=== PATIENT | male | born 1975 | race Caucasian/White ===

== ENCOUNTER 2020-09-16 16:13 | Emergency (ER) | payer OTHER, SELFPAY ==
[2020-09-16 16:26] VITALS: BP 139/105; PULSE 107; RESP 14; TEMP 37.1; O2SAT 98
--- NOTE | 2020-09-16 16:30 | DI.RAD_ITS ---
Exam(s) XR ANKLE LT COMPLETE EXAM: XR ANKLE LT COMPLETE CLINICAL HISTORY: pain at medial malleolus TECHNIQUE: 2D digital imaging was performed. COMPARISON: No exams were available for comparison FINDINGS: BONES: No acute fracture is present. No bony destructive lesion is seen. JOINTS:The ankle mortise is normally aligned. SOFT TISSUE: Normal. IMPRESSION: Unremarkable radiographs of the left ankle. If there is continued clinical concern, a follow-up exami nation may be obtained in 10-14 days. DATA REPOSITORY: RADIATION DOSE DELIVERED:
--- NOTE | 2020-09-16 16:40 | ED.GENADUL_ITS ---
Discharge Plan Disposition Patient Disposition: HOME Condition: Good Discharge Details Clinical Impression: Ankle sprain Primary Care Provider: Sia,Local ED Provider: Marcie Crystal Discharge Instructions Instructions: Ankle Sprain (ED) Additional Instructions: Take ibuprofen 600 mg every 8 hours with food Follow-up with your primary care physician in 1 week for repeat x-ray with persistent pain You may take Tylenol for breakthrough pain Refrain from wrapping the Henry wrap too tightly around your ankle as I can cause skin damage Return earlier should you have spreading redness, fever, worsening pain Elevate your extremity and ice Weightbearing as tolerated Discharge Data Discharge Date/Time-TO BE ENTERED AT DEPARTURE: 09/16/20 17:36 Medical Decision Making Patient has erythema overlying his medial malleolus and extending up his youngblood, he has no calf swelling or tenderness and the injury occurred yesterday, unlikely to be DVT No chest pain, no shortness of breath, neurovascularly intact, no tenderness to knee or foot Redness like secondary to mild DKA overlying a very tightly bound Henry wrap which I suspect is because of the retina Patient placed in walking boot X-ray reviewed by me and interpretation by radiologist reviewed where available, negative for fracture, declines crutches Ibuprofen and Tylenol for pain control Return after repeat x-ray in 1 week pain recommended Blood pressure recommended to check by primary care physician, repeat pulse 89 at time of discharge Differential Diagnosis Differential Diagnosis: Fracture, strain, cellulitis, DVT HPI General Mode of arrival: ambulatory . Date/Time Provider Initiated Documentation: 09/16/20 16:23 . Limitations to Documentation: no limitations . Information obtained by: patient . HPI Narrative: This 45-year-old male presents with report of left ankle pain. Patient states he twisted his ankle after missing the last step on his porch last evening. He has pain medial aspect of his ankle reportedly. Able to weight-bear but pressure causes significant pain. Denies any strength or sensation changes. Denies any knee pain denies any additional time. Related Data Allergies Allergy/AdvReac Type Severity Reaction Status Date / Time amoxicillin Allergy Mild Unverified 09/16/20 16:34 erythromycin base Allergy Mild Unverified 09/16/20 16:35 General Stated Complaint: Orthopedic NAWAF: 3 Review of Systems Narrative: Review of systems obtained x7 aside from where indicated in HPI PFSH Social History Smoking/Tobacco Use Status: Current every day Tobacco Type: cigarettes Smoking risk assessment performed?: Yes Alcohol Intake: current Alcohol Intake frequency: a few times a week Alcohol type: beer Drug use: Daily Substance use type: marijuana Do you feel safe at home: Yes Do you feel safe in your relationship?: Yes Exam Skin Other: Erythematous rash overlying left youngblood noted after tightly wound Henry wrap removed, neurovascularly intact Extrem Other: Left medial aspect of ankle tenderness, no tenderness to left proximal lower leg, no knee tenderness, no tenderness to affected extremity overlying foot Course Vital Signs Vital signs: Vital Signs Temperature 37.1 C 09/16/20 16:26 Pulse 107 H 09/16/20 16:26 Respiratory Rate 14 09/16/20 16:26 Blood Pressure 139/105 H 09/16/20 16:26 Pulse Oximetry 98 09/16/20 16:26 Temperature 37.1 C 09/16/20 16:26 Temperature Source Skin 09/16/20 16:26 Pulse 107 H 09/16/20 16:26 Respiratory Rate 14 09/16/20 16:26 Respiratory Effort Non-Labored 09/16/20 16:37 Blood Pressure 139/105 H 09/16/20 16:26 Blood Pressure Position Sitting 09/16/20 16:26 Pulse Oximetry 98 09/16/20 16:26 Oxygen Delivery Method Room Air 09/16/20 16:26 Oxygen Flow Rate 0 09/16/20 16:26 Pain Level 9 09/16/20 16:26
--- NOTE | 2020-09-16 17:00 | DI.VRAD_ITS ---
PROCEDURE INFORMATION: Exam: XR Left Ankle Exam date and time: 09/16/2020 4:35 PM Age: 45 years old Clinical indication: Injury or trauma; Other: Twisted; Sprain or strain; Ankle; Left TECHNIQUE: Imaging protocol: XR Left ankle. Views: 3 or more views. COMPARISON: No relevant prior studies available. FINDINGS: Bones/joints: Normal. Soft tissues: Normal. IMPRESSION: No acute findings. Dictated and Authenticated by: Christen Alvarado MD. Ordering:CHRISTOPHER Jack MD
== END 2020-09-16 17:36 | disposition home or self-care (01) ==
PROVIDERS: Emergency Provider Physician Assistant
DX: S93.492A Sprain of other ligament of left ankle, initial encounter (principal); X50.9XXA Other and unspecified overexertion or strenuous movements or postures, initial encounter
CPT/HCPCS: 29515; 99283; 73610

== ENCOUNTER 2020-09-18 01:22 | Emergency (ER) | payer OTHER, SELFPAY ==
[2020-09-18 01:25] VITALS: BP 136/76; PULSE 120; RESP 17; TEMP 36.9; O2SAT 98
--- NOTE | 2020-09-18 01:30 | ED.GENADUL_ITS ---
Discharge Plan Disposition Patient Disposition: HOME Condition: Good Discharge Details Clinical Impression: Cellulitis, leg Primary Care Provider: Sia,Local ED Provider: Richie Reyes Meds and New Rx's Prescriptions: New cephalexin 500 mg capsule 500 mg PO Q8H Qty: 21 RF: 0 Discharge Instructions Instructions: Cellulitis (ED) Additional Instructions: Take antibiotic as prescribed. Keep legs elevated when you can. Acetaminophen or ibuprofen for discomfort/fever. We will refer you to care management to establish primary care in the area. Return to ED for increasing pain, redness, swelling, mental status changes, other concerns. Referrals: Care Management [Provider Group] Medical Decision Making Patient is afebrile here but is tachycardic. Blood pressure is normal. He does not look toxic. Does appear to have bilateral tibial cellulitis probably from excoriated areas of bug bite. Because of the tachycardia will place IV and check labs, give a liter of fluid, dose with 1 g of cefazolin. Laboratory studies look fine. Lactic acid normal. White count normal. Heart rate under 100 with less than a liter of fluid. We will plan discharge with prescription for cephalexin. Will refer to care management for PCP. Return to emergency department for worsening redness, swelling, pain, mental status change, other concerns HPI General Mode of arrival: ambulatory . Date/Time Provider Initiated Documentation: 09/18/20 01:30 . Limitations to Documentation: no limitations . Information obtained by: patient and RN notes reviewed . HPI Narrative: Patient presents to ED with bilateral lower extremity redness and pain. Symptoms ongoing for the last few days. Initially thought related to an ankle sprain but now reports having fevers and chills as well as general malaise. Initially only noticed it on the left leg. Now it is on both legs. Had received a lot of bug bites while outside last week and has been scratching at some of them. He does not know how high his fever has been at home; he has just had sweats and chills. He feels he is in general good health but admits not seeing a PCP in a few years. He drinks daily and is a smoker. Related Data Home Medications Medication Instructions Recorded Confirmed cephalexin 500 mg PO Q8H #21 cap 09/18/20 Previous Rx's Medication Instructions Recorded cephalexin 500 mg PO Q8H #21 cap 09/18/20 Allergies Allergy/AdvReac Type Severity Reaction Status Date / Time amoxicillin Allergy Mild Unverified 09/18/20 01:28 erythromycin base Allergy Mild Unverified 09/18/20 01:28 General Stated Complaint: Cellulitis NAWAF: 3 Review of Systems Narrative: As documented in HPI otherwise negative as below. Const: no weakness Resp: no cough, SOB, pleuritic pain CV: no CP, diaphoresis, edema, syncope GI: no abdominal pain, nausea, vomiting, diarrhea Neuro: no headache, numbness, focal weakness, confusion [facility] Medical History (Updated 09/18/20 @ 02:27 by Richie Reyes MD) No significant past medical history Social History (Updated 09/18/20 @ 01:58 by Richie Reyes MD) Smoking/Tobacco Use Status: Current every day Tobacco Type: cigarettes Smoking risk assessment performed?: Yes Alcohol Intake: current Alcohol Intake frequency: 3 or more drinks per day Alcohol type: beer Drug use: Daily Substance use type: marijuana Do you feel safe at home: Yes Do you feel safe in your relationship?: Yes Exam Narrative Exam Narrative: Const: WDWN male in NAD. HEENT: NC/AT. Normal facial exam. Eyes: Normal conjunctiva and sclera. Neck: Supple. Trachea midline. Lungs: Normal respiratory effort. Cor: RRR. Good distal pulses. Neuro: A+O x 3. Normal speech, mentation, gait. Cranial nerves II - XII grossly intact. No gross motor or sensory deficit. Ext: No C/C/E. Venous stasis type changes bilateral distal lower extremities. Left ankle swelling and tenderness from previous sprain. Bilateral anterior tibialis erythema, warmth, tenderness. Course Vital Signs Vital signs: Vital Signs Temperature 98.4 F 09/18/20 01:25 Pulse 120 H 09/18/20 01:25 Respiratory Rate 17 09/18/20 01:25 Blood Pressure 136/76 09/18/20 01:25 Pulse Oximetry 98 09/18/20 01:25 Temperature 98.4 F 09/18/20 01:25 Temperature Source Temporal Artery Scan 09/18/20 01:25 Pulse 120 H 09/18/20 01:25 Respiratory Rate 17 09/18/20 01:25 Respiratory Effort 09/18/20 01:27 Blood Pressure 136/76 09/18/20 01:25 Blood Pressure Position Sitting 09/18/20 01:25 Pulse Oximetry 98 09/18/20 01:25 Oxygen Delivery Method Room Air 09/18/20 01:25 Oxygen Flow Rate 0 09/18/20 01:25 Pain Level 4 09/18/20 01:25
[2020-09-18] MEDS: Lactated Ringers 1,000 ML 1000 ML IV (01:51)
[2020-09-18] MEDS: ceFAZolin 1 GM/50 ML BAG IVPB (01:51)
[2020-09-18 01:57] LABS: Abs Immature Grans 0.03 10^3/uL (0.0-0.06); Absolute Basophil Count 0.05 10^3/uL (0.0-0.2); Absolute Lymphocyte Count 2.45 10^3/uL (1.2-3.4); Absolute Monocyte Count 0.67 10^3/uL (0.1-0.8); Absolute Neutrophil Count 7.27 10^3/uL (1.2-6.7); Basophils % 0.5; Eosinophils % 1.9; HCT 44.9 % (40.0-50.0); HGB 15.7 g/dL (13.5-17.5); Immature Grans % 0.3; Lactate 1.1 mmol/L (0.6-1.4); MCH 30.8 pg (27.0-33.0); MPV 9.8 fL (8.0-11.0); Monocytes % 6.3; Nucleated RBC 0 %; Platelet Count 147 10^3/uL (130-400); RDW 12.8 % (11.8-14.1); RDW-SD 41.4 fL; WBC 10.67 10^3/uL (4.4-10.8)
[2020-09-18 02:17] LABS: ALT 61 U/L (16-63); AST 22 U/L (15-37); Albumin 3.9 g/dL (3.4-5.0); Alkaline Phosphatase 72 U/L (46-116); Anion Gap 12.1 mmol/L (3-11); BUN 10 mg/dL (7-18); Bilirubin, Total 0.7 mg/dL (0.2-1.0); CO2 26.9 mmol/L (21.0-32.0); Calcium 8.6 mg/dL (8.5-10.1); Chloride 101 mmol/L (98-107); Glucose 119 mg/dL (74-106); Sodium 140 mmol/L (136-145); Total Protein 7.6 g/dL (6.4-8.2)
[2020-09-18 02:24] VITALS: BP 142/99; PULSE 95; RESP 16; TEMP 36.9; O2SAT 98
--- NOTE | 2020-09-18 02:26 | NUR.NOTE ---
Nursing Note:referal sent to cm for est. pcp with appt for next week follow up for cellulitis 09/18/20
--- NOTE | 2020-09-20 10:06 | CMPROGNOTE_ITS ---
- If Service Date Differs Date of service: 09/20/20 Time of Service: 10:06 Care Management Progress Note Kim is seen in the ED for cellulitis. At the request of ED provider, CM coordinates a referral to Hodan Mohamud of [facility], on-call provider, to assist Kim in obtaining a follow up appointment and in establishing care with a PCP. Kim has [employer] for insurance.
== END 2020-09-18 02:40 | disposition home or self-care (01) ==
PROVIDERS: Emergency Provider Emergency Medicine
DX: L03.115 Cellulitis of right lower limb (principal); L03.116 Cellulitis of left lower limb
CPT/HCPCS: 36415; 80053; 96361; 96365; 99284; 83605; 85025; 99283; J0690